=== PATIENT | female | born 1945 | race Caucasian/White ===

== ENCOUNTER 2022-07-09 14:00 | Outpatient (RCR) | payer MEDICARE, OTHER, SELFPAY | END 2022-10-15 09:03 | disposition home or self-care (01) | PROVIDERS: PCP Family Medicine; Visit Provider Family Medicine | DX: N81.89 Other female genital prolapse (principal); Z51.89 Encounter for other specified aftercare | CPT/HCPCS: 97110; 97140; 97162; 97535 ==

== ENCOUNTER 2022-11-05 13:45 | Outpatient (CLI) | payer MEDICARE, OTHER, SELFPAY | END 2022-11-05 13:46 | disposition home or self-care (01) | PROVIDERS: PCP Family Medicine; Visit Provider Obstetrics & Gynecology | DX: R68.89 Other general symptoms and signs (principal) | CPT/HCPCS: 87086 ==

== ENCOUNTER 2022-12-17 13:00 | Outpatient (CLI) | payer MEDICARE, OTHER, SELFPAY ==
--- NOTE | 2022-12-17 13:00 | CRLHL7_ITS ---
For Patients: As a result of the Century Cures Act, medical imaging exams and procedure reports are released immediately into your electronic medical record. You may view this report before your referring provider. If you have questions, please contact your health care provider. Indication: BLOATING AND PAIN, IBS Technique: Postcontrast CT abdomen and pelvis. 53 cc Isovue 370 intravenous contrast. Please note that all CT scans at this facility use dose modulation, iterative reconstruction, and/or weight-based dosing when appropriate to reduce radiation dose to as low as reasonably achievable. Comparison: None Findings: Mild atelectasis/scarring in both lung bases. There is no intrahepatic mass. No stigmata of cirrhosis. Atherosclerotic disease. Adrenal glands normal. Normal spleen. Nodular structure adjacent to the posterior liver measuring 1.1 cm. Right kidney is normal. Incidental extrarenal pelvis noted bilaterally. No hydronephrosis. Left kidney also normal. Normal pancreas. No hiatal hernia. Normal stomach. Duodenum and jejunum appear normal. Bladder unremarkable. No pelvic soft tissue mass. Postoperative changes of hysterectomy. Hyperdense material within the colon. No bowel obstruction, free air, free fluid or adenopathy. The appendix is absent. Degenerative spondylolisthesis of L3 on L4. No fracture. Impression: No bowel obstruction or inflammatory change. No evidence of colitis or enteritis. Atherosclerotic disease without aneurysm or dissection. No evidence of ischemic change. Incidental circumscribed nodular density posterior to liver. This is of doubtful significance and could be followed up at 1 year`[address] time with CT of the abdomen. Please note that all CT scans at this facility use dose modulation, iterative reconstruction, and/or weight-based dosing when appropriate to reduce radiation dose to as low as reasonably achievable. Dictated by Ferny Rosario MD @ 12/18/2022 4:59:05 PM (Electronically Signed)
[2022-12-17 13:58] LABS: Creatinine* 0.6 mg/dL (0.5-1.5); Estimated Glomerular Filt Rate 93 ml/min
== END 2022-12-17 13:01 | disposition home or self-care (01) ==
LOC: CT 13:01
PROVIDERS: PCP Family Medicine; Visit Provider Obstetrics & Gynecology
DX: R14.0 Abdominal distension (gaseous) (principal); K58.9 Irritable bowel syndrome, unspecified; I70.90 Unspecified atherosclerosis; K76.9 Liver disease, unspecified
CPT/HCPCS: 36415; 74177; 82565; Q9967

== ENCOUNTER 2023-05-11 06:01 | Day surgery (SDC) | payer MEDICARE, OTHER, SELFPAY ==
[2023-05-11] VITALS (20 sets, daily range): BP systolic 106–165; BP diastolic 64–99; PULSE 63–86; RESP 16–17; TEMP 36.2–36.8; O2SAT 92–99; BMI 21.8
[2023-05-11] MEDS: LACTATED RINGERS 1000 ML 1,000 ML 100 ML IV ×2 (07:00→12:53)
[2023-05-11] MEDS: SODIUM CHLORIDE 0.9 % (FLUSH) 10 ML SYRINGE IVF (07:00)
--- NOTE | 2023-05-11 07:16 | SUR.PREOP ---
TIME?OUT:?0716 PT/RN/MDA?VERIFICATION?OF?SURGICAL?SITE,?PROCEDURE,?AND?CONSENT OBTAINED?PRIOR?TO?INVASIVE?PROCEDURE.
[2023-05-11] MEDS: MIDAZOLAM HCL 1 MG/ML inj IVP (07:20)
[2023-05-11] MEDS: fentaNYL 100 MCG/2 ML inj IVP (07:20)
[2023-05-11] MEDS: EPINEPHrine 1 MG in SODIUM CHLORIDE IRRIG SOLUTION 3,000 ML 200 MG IRRIGATION (08:30)
[2023-05-11] MEDS: EPINEPHrine 1 MG in SODIUM CHLORIDE IRRIG SOLUTION 3,000 ML 9003 MG IRRIGATION ×4 (08:30)
--- NOTE | 2023-05-11 08:55 | W.PM.NB ---
Nerve Block Nerve Block Time Seen by Provider: 07:22 Date Seen: 05/11/23 Type of block requested by surgeon for post-operative analgesia: supraclavicular Side: left Time out performed: Yes Verification of patient name: Yes Verification of date of : Yes Site marking: site marked Name of person performing procedure: Devon Continuous monitoring Was continuous monitoring of O2 sat, B/P, monitor technician, recorded every 15 minutes?: Yes Procedure Checklist: sterile prep, needles and gloves Ultrasound guided. Images saved: Yes Medications given in 5ml increments after negative aspiration: Ropivicaine %: 0.5 mL: 20 Needle gauge: 22 Decadron (mg): 10 Precedex (mcg): 25 Patient tolerated procedure well: Yes Block Charges Block Charge (with Pro Fee): Brachial Plexus Use of Ultrasound Machine for Block: Yes- US Guidance/pain block
--- NOTE | 2023-05-11 08:55 | W.ANESCHARGE ---
Anesthesia Charges Start Date/Time Anesthesia Start Date: 05/11/23 Anesthesia Start Time: 07:30 Stop Date/Time Anesthesia Stop Date: 05/11/23 Anesthesia Stop Time: 09:28 Summary Extremes of Age - Over 70 or under 1: MDA
--- NOTE | 2023-05-11 09:06 | P.ORPRC_ITS ---
Procedure Note Date of procedure: 05/11/23 Procedure: PREOPERATIVE DIAGNOSES: 1. Left shoulder rotator cuff tear. 2. Left shoulder AC degenerative joint disease, primary, moderate-severe 3. Left shoulder subacromial impingement syndrome. POSTOPERATIVE DIAGNOSES: 1. Left shoulder rotator cuff tear. 2. Left shoulder AC degenerative joint disease, primary, moderate-severe 3. Left shoulder subacromial impingement syndrome. NAME OF OPERATION: 1. Left shoulder arthroscopic rotator cuff repair -upper border subscapularis and high-grade partial-thickness supraspinatus 2. Left shoulder arthroscopic distal clavicle excision 3. Left shoulder arthroscopic bursectomy, subacromial decompression/partial acromioplasty. SURGEON: Aristeo Fuentes MD OSTEOPATHIC NEUROLOGIST: Awais Rolon. Of note, a skilled dermatology physician assistant was critical for this case to aide in patient positioning, suture manipulation, arm positioning, instrument positioning, and closure. ANESTHESIA: General plus preoperative supraclavicular block. EBL: 25 mL IMPLANTS: Arthrex 4.75 mm BioComposite SwiveLock suture anchor (x1); 7.0 mm BioComposite SwiveLock suture anchor (x1) COMPLICATIONS: None evident INDICATIONS: The patient is a pleasant, 77-year-old female who has experienced left shoulder pain that has been increasing in recent time. Physical exam and imaging were consistent with a rotator cuff tear. Given their findings, as well as the weakness and pain, and inadequate response to nonoperative management, recommendation was made for surgery. FINDINGS: Exam under anesthesia revealed stable shoulder with excellent range of motion. The diagnostic arthroscopy revealed grade 2 chondromalacia humeral head and glenoid centrally. The Subscapularis tendon was torn from its upper border with mild retraction. The long head of the biceps tendon was intact overall without significant tearing or subluxation. The superior rotator cuff tendon was found to be torn and high-grade partial-thickness manner supraspinatus near its insertion. The labrum was minimally degeneratively frayed anteriorly. No loose bodies were identified within the pouch or subscapularis recess. PROCEDURE: Following a thorough discussion of risks, benefits, and alternatives, consent was obtained and the left shoulder was marked. The patient was brought to the operating room and placed supine on the operating table. Induction of anesthesia was completed after preoperative supraclavicular block was administered in preop holding. Appropriate time out was performed identifying proper patient, site, and procedure. 2 g IV Ancef was administered within 1 hour of incision preoperatively. The left upper extremity was prepped and draped in the appropriate sterile fashion using ChloraPrep prep. This was after the patient was positioned in the beach chair with their head in neutral alignment and all bony prominences well padded. The shoulder was insufflated with 20mL of normal saline via an 18g spinal needle from a posterior approach. An 11 blade skin incision allowed a blunt trochar to be inserted and diagnostic arthroscopy to be performed with the findings as noted above. An anterior portal was established with an outside in technique. This allowed the probe to be inserted and confirm the diagnostic arthroscopic findings. The shaver was then inserted and allowed debridement of rotator interval tissue. Following this, the upper border subscapularis was repaired after debriding the lesser tuberosity with the shaver and [place] cautery. Subscapularis was captured in horizontal mattress fashion with a fiber tape suture. The tails were brought to a single anchor in the lesser tuberosity with excellent reapproximation of the subscap tendon and good excursion/tension. Thereafter, the subacromial space was entered. Here, a complete bursectomy and partial acromioplasty/subacromial decompression was performed with a combination of radiofrequency ablator, the shaver, and a 5.5 mm bur. Additionally, distal clavicle excision was performed with the bur. 8 mm of distal clavicle was resected based on the width of our bur. Further inspection of the supraspinatus and infraspinatus rotator cuff was performed. This identified the tear as noted above. The margins of the tear were debrided, and the greater tuberosity was debrided with a combination of the [place] cautery, shaver, and bur on reverse setting. After gentle decortication, single FiberTape suture was passed in a horizontal mattress fashion with the scorpion needle. It was brought to a single anchor further laterally with excellent reapproximation and securing of the rotator cuff. The 1st 5.5 mm anchor that was tried pulled out due to poor bone quality. Thereafter, a 7 mm anchor was chosen and good security achieved. This was tested extensively to ensure it had good support and stability. Prior to anchor regional refrigerated cdl truck driver removal, the eyelet sutures were tugged on for each anchor and found that the anchor had excellent stability within the bone. The shoulder was placed through range of motion and found to be stable. The rotator cuff was re-probed and found to be stable. Instruments were removed. Excess fluid was drained, closure performed with 4-0 Monocryl and Steri-Strips. Dressings were applied. Sling was applied. The patient was awoken from anesthesia and transferred to the PACU in stable condition. A skilled dermatology physician assistant was critical for this case to aid in patient positioning, limb positioning, skill to manipulate arthroscopic instruments and camera, suture management, patient safety, and closure. PLAN: 1. Elbow, forearm, wrist and digit range of motion of operative extremity as tolerated. 2. Encouraged ice. 3. Tramadol for pain as needed. 4. Sling at all times except for ROM and showering. 5. Follow up with PA visit in 1-2 weeks for wound check. Initiate physical therapy following that visit for passive range of motion. Initiate active assisted range of motion at 4 weeks. May do pendulums now.
--- NOTE | 2023-05-11 09:30 | P.ANES_ITS ---
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
[2023-05-11] MEDS: ONDANSETRON 2 MG/ML inj 4 MG IVP (09:51)
--- NOTE | 2023-05-11 10:09 | SUR.PHASEI ---
patient met discharge criteria per anesthesia
[2023-05-11] MEDS: METOCLOPRAMIDE HCL 5 MG/ML INJ 10 MG IVP (11:32)
--- NOTE | 2023-05-11 12:53 | SUR.PHASEII ---
patient complains of consistent nausea, reglan given, essential oil patch given. no relief. anesthesia ordered another iv bolus of fluids to give.
--- NOTE | 2023-05-11 13:36 | SUR.PHASEII ---
PATIENT STATES SHE FEELS BETTER WITH IV FLUIDS GIVEN AND WANTS TO GO HOME TO REST.
== END 2023-05-11 13:35 | disposition home or self-care (01) ==
PROVIDERS: PCP Family Medicine; Visit Provider Orthopaedic Surgery Sports Medicine
PROC: (CPT 29805; principal; 2023-05-11 07:30)
DX: M75.102 Unspecified rotator cuff tear or rupture of left shoulder, not specified as traumatic (principal); M19.012 Primary osteoarthritis, left shoulder; M75.42 Impingement syndrome of left shoulder; G89.18 Other acute postprocedural pain
CPT/HCPCS: 29827; 29826; 29824; 01630; 64415; 76942; 99100; C1713; J0171; J0330; J1100; J2250; J2405; J2704; J2765; J2795; J3010; J7120; L3670; S0077

== ENCOUNTER 2023-11-20 08:10 | Outpatient (CLI) | payer MEDICARE, OTHER, SELFPAY ==
--- NOTE | 2023-11-20 09:38 | P.ANES_ITS ---
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
--- NOTE | 2023-11-20 09:58 | W.ANESCHARGE ---
Anesthesia Charges Start Date/Time Anesthesia Start Date: 11/20/23 Anesthesia Start Time: 09:23 Stop Date/Time Anesthesia Stop Date: 11/20/23 Anesthesia Stop Time: 09:39
--- NOTE | 2023-11-20 09:58 | W.ANESCHARGE ---
Anesthesia Charges Start Date/Time Anesthesia Start Date: 11/20/23 Anesthesia Start Time: 09:23 Stop Date/Time Anesthesia Stop Date: 11/20/23 Anesthesia Stop Time: 09:39 Summary Extremes of Age - Over 70 or under 1: MDA
== END 2023-11-20 08:11 | disposition home or self-care (01) ==
LOC: OP CLINIC 08:12
PROVIDERS: PCP Family Medicine; Visit Provider Internal Medicine
DX: K21.9 Gastro-esophageal reflux disease without esophagitis (principal); R10.13 Epigastric pain
CPT/HCPCS: 00731; 43239; 88305; 99100; J2405; J2704

== ENCOUNTER 2023-12-30 10:00 | Outpatient (RCR) | payer MEDICARE, OTHER, SELFPAY ==
--- NOTE | 2022-12-15 17:15 | PT.OPEX ---
PT [place] [facility] Eval PT [facility] Eval Start: 12/15/22 09:33 Freq: Status: Active Protocol: Document 12/15/22 09:49 FLAKITA (Rec: 12/15/22 09:52 FLAKITA [id number]) E-signed By Marta Bergman, PT Physical Therapy Outpatient Evaluation Insurance Information Recert Due Date 03/15/23 Insurance Name Medicare B,SPO [facility] Medical Diagnosis Pelvic pain pelvic and perineal pain Treating Diagnosis pain Referring MD Dr Pepito Judd presents to PT with diagnosis of pelvic and perineal pain. PFD symptoms have been present for > 1 year . Was treated in pelvic rehab last year to address her bladder symptoms, UI, which has continued to be better. Recently has been struggling with lower abdominal bloating and pain. The pain usually occurs prior to her defecating and is described as a burning pain just to the R of midline suprapubic region. Pain does cease after defecating. Rates pain as a 5-6/10. Also associated with her current symptoms is pain with intercourse, and mild UI if holding her urinate too long. 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 Goals for therapy are to reduce her abdominal pain and her pain with intercourse. 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 Her symptoms of PFD have been present for years. Was diagnosed and treated for Lichens Sclerosis which has been helpful. Her main c/o currently issue is lower abdominal bloating and pain. Pt does have history of IBS? and diverticuli ( confirmed with colonoscopy). Overall her diet is good/ balanced. She reports decreased appetite and decreased intake of food due to her current abdominal symptoms. Does have a CT scan scheduled in 2 days. Pt also has multiple other medical issues she is currently dealing with: L ankle surgery, lumbar dysfunction, B inguinal hernias and umbilical hernias (small hernias). Did not have time to complete assessment of pt PFM today due to her PMH and her current status and her upcoming CT scan. Will complete the assess of her PFM and pelvic region at her next session if appropriate. Plan is to continue with further skilled PT services including use of therapeutic exercise, therapeutic activities, neuromuscular re- ed, manual therapy, and self cares for symptom reduction. Plan of Care Rehabilitation Potential Good Physical Therapy Goals Short term goals to be achieved in 4 weeks. 1. Pt will report a reduction in the frequency of her lower abdominal pain by 50 % 2. Pelvic exam/treatment will result in at most 4/10 pain. 3. Pt will demonstrate normal resting tone of PFM at rest and following a PFM contraction, 3 out of 4 trials . [facility] goals to be achieved in 12 weeks. 1. Pt will be independent with home program for symptom reduction. 2. Pt able to report an 80 %, or greater, reduction in the occurrence of her lower abdominal pain prior to defecation. 3. Able to tolerate intercourse with pain no greater than 3/10 Coordination/Communication With Referral Source Treatment Plan/Direct Interventions Manual Therapy,Neuromuscular Re-ed,Self-Care/Home Management,Therapeutic Activities,Therapeutic Exercises Frequency/Duration 1 time a week for up to 12 visits Patient Will Be Discharged From Therapy Completion of LTG(s),Skills Plateau,Independent w/HEP, Independently Progressing Evaluation Billing Untimed Code Treatment Minutes 45 Complexity Moderate Certification Information Initial Certification Date 12/15/22 Ending Certification Date 03/15/23 Provider Signature Shows Agreement With POC & Medical Necessity Physician Signature & Date Requested Please Sign/Date Here Physician Comment/Change : Physician NPI Number #
--- NOTE | 2023-04-15 15:28 | PT.OPDNX ---
PT [place] Outpatient Daily Note PT [facility] Outpatient Daily Note Start: 12/15/22 09:33 Freq: Status: Active Protocol: Document 04/08/23 14:01 FLAKITA (Rec: 04/08/23 15:32 FLAKITA [id number]) E-signed By Marta Bergman, PT PT OP Daily Progress Note Visit Information Note Type Daily Note Visit Number [id number] Insurance Information Recert Due Date 07/07/23 Insurance Name Medicare B,[employer] [facility] Medical Diagnosis Pelvic pain pelvic and perineal pain Treating Diagnosis pain Referring MD Dr Beyer Subjective Subjective Pt had her follow up with Dr. Beyer. Biopsy was negative for CA. Will continue with Clobetasol 2 times a week. Has to be on Premarin halfway. Saw Dr. Fuentes. Is planning to have L shoulder surgery for RTC repair and frozen shoulder. Surgery is planned for May 11. Foot surgery will be post postponed until her shoulder improves. Has been doing her HEP as she can following her biopsy. Does feel like things are going OK .Still has some itching symptoms but better with the medication. Pain Comments 5-04/25 Precautions Treatment Precautions/Contraindications osteoporosis skin CA IBS HTN fibro Raynaud's Objective Patient Instructed in Risks/Benefits Yes Therapeutic Exercise Therapeutic Exercise Minutes (minutes) 30 Therapeutic Exercise: To Restore Did advance her HEP to work on Functional Status pelvic and lumbar stability and to improve function of her PFM -PT with use of Kegel into PT. Progressed from PT into unbanded hip ABD - B and unilateral with progression into B YTB. -Seated isometric hip ADD -Standing mini squats with gluteal contraction. Did need cueing on all exs for proper execution of her new exs. Self Care Management Training Self-Care Activity Minutes (minutes) 20 Self Care Management Training Did discuss pt's current status/situation. Suggested sleeping in recliner or hosp bed following her surgery. Discussed ways to modify her ADLs for ease and independence as much as possible. Also discussed pain following RTC repair and need to keep ahead of pain, ice, etc. Treatment Minutes Timed Code Treatment Minutes 50 Total Treatment Time 50 Billing Units Self-Care Activity Units 1 Therapeutic Exercise Units 2 Assessment/Impression Assessment/Impression Did not assess PFM today yet due to her biopsy approx 2 weeks ago. Only started her Premarin approx 5-7 days. Waited internal assessment to promote healing and improve tissue integrity with medications. Did work on advancing her HEP to work on more core strength prior to her upcoming surgery to help protect her PFM as well as improve her function/ independence. Will return next week and will assess PFM function at that time Plan of Care Physical Therapy Goals Short term goals to be achieved in 4 weeks. 1. Pt will report a reduction in the frequency of her lower abdominal pain by 50 %. IMPROVED/NEAR MET 2. Pelvic exam/treatment will result in at most 4/10 pain. IMPROVED 3. Pt will demonstrate normal resting tone of PFM at rest and following a PFM contraction, 3 out of 4 trials . IMPROVED/NEAR MET [facility] goals to be achieved in 12 weeks. 1. Pt will be independent with home program for symptom reduction. IMPROVED 2. Pt able to report an 80 %, or greater, reduction in the occurrence of her lower abdominal pain prior to defecation. IMPROVED 3. Able to tolerate intercourse with pain no greater than 3/10 NOT MET Daily Plan of Care Continue per POC,Change POC; See Comments Daily Plan of Care Comments Will reassess PFM status next week if able. Will continue to progress pt toward independent self management of her symptoms. Will work on continued downtraining, stretches/HEP and use of dilators if able for fully meet goals. Will see for approx 4-6 more session to work on transitioning to independence. Pt has her L shoulder surgery in approx 4 weeks. Will not be able to perform self treatment during her recovery from shoulder surgery. Recertification Information Initial Certification Date 12/15/22 Recertification Start Date 04/08/23 Recertification Due Date 07/07/23 Reasons to Continue Skilled Therapy Pt has had numerous set backs due to her health. Recently diagnosed with L RTC tear. Surgery will be in approx 1 month. Will try to improved independence prior to her surgery. During her recovery from surgery, will most like be unable to treat PFM. Will return again in June to reassess her status and progress as able. Rehabilitation Potential good Continued Plan of Care and Interventions Pt will continue with 4-6 more session over the past 12 weeks. Will use MT, ther exs, NMRE, and self care for symptom reduction and ability to self manage Provider Signature Shows Agreement With POC & Medical Necessity Physician Comment/Change Comment or Changes Physician NPI Number #
--- NOTE | 2023-07-03 15:27 | PT.OPDNX ---
PT [place] Outpatient Daily Note PT [facility] Outpatient Daily Note Start: 12/15/22 09:33 Freq: Status: Active Protocol: Document 07/03/23 13:06 FLAKITA (Rec: 07/03/23 15:01 FLAKITA [id number]) E-signed By Marta Bergman, PT PT OP Daily Progress Note Visit Information Note Type Daily Note Visit Number [id number] Insurance Information Recert Due Date 10/01/23 Insurance Name Medicare B,[employer] [facility] Medical Diagnosis Pelvic pain pelvic and perineal pain Treating Diagnosis pain Referring MD Dr Beyer Subjective Subjective Still has a rash - itchy at times but is better. Still has some itchiness along her vulvar area. No change in the itching with her use of medications. Has not yet tried the dilators due to recovering from her RCR. Pain Comments Precautions Treatment Precautions/Contraindications osteoporosis skin CA IBS HTN fibro Raynaud's Objective Patient Instructed in Risks/Benefits Yes Manual Therapy Techniques Manual Therapy Minutes (minutes) 45 Manual Therapy Techniques Observation of PF tissue - PFM tissue appears good. No redness despite pt reporting itching. MT was performed to all layers of PFM, externally along B bulbo, ischio and STP - TPR and lengthening/fascial work. Intravaginally MT use to reduce tone/spasms for symptom reduction. Emphasis of TPR was along Bulbo from 1-3, 3-6 and 11-12 o'clock. B [place] and PC lengthening/fascial work. Did review self TPR for pt to work tuyet along first layers due to high tone and reactivity. Educated with use of finger or dilator. Treatment Minutes Timed Code Treatment Minutes 45 Total Treatment Time 45 Billing Units Manual Therapy Units 3 Assessment/Impression Assessment/Impression Main c/o is still having symptoms of itching. Higher tone is present yet along B side of her PFM - especially along L 1st and 3rd layers. Pt is nervous about starting up on using dilators due to her recent shoulder surgery. Will try some TPR on her own to see if she can reduce some of the tone and her itching symptoms. Overall tissues is appearing better. No bleeding post session or sign of irritation. Pt will progress into some entle TPR or use of dilators as she can with her shoulder. Is making progress toward the goals. Plan of Care Physical Therapy Goals Short term goals to be achieved in 4 weeks. 1. Pt will report a reduction in the frequency of her lower abdominal pain by 50 %. MET 2. Pelvic exam/treatment will result in at most 4/10 pain. IMPROVED 3. Pt will demonstrate normal resting tone of PFM at rest and following a PFM contraction, 3 out of 4 trials . NEAR MET jail goals to be achieved in 12 weeks. 1. Pt will be independent with home program for symptom reduction. IMPROVED. HAS HAD A SET BACK DUE TO HER RECENT SURGERY 2. Pt able to report an 80 %, or greater, reduction in the occurrence of her lower abdominal pain prior to defecation. IMPROVED 3. Able to tolerate intercourse with pain no greater than 3/10 NOT MET- HAS NOT BEEN ABLE TO WORK ON HER HEP CONSISTENTLY SINCE HER SHOULDER SURGERY Daily Plan of Care Continue per POC,Change POC; See Comments Daily Plan of Care Comments Will continue with up to 6 more session to advance to self management. Recertification Information Initial Certification Date 12/15/22 Recertification Start Date 07/03/23 Recertification Due Date 10/01/23 Reasons to Continue Skilled Therapy see above Rehabilitation Potential GOOD Continued Plan of Care and Interventions up to 6 more session to advance her HEP into self management. Will use MT, ther exs, self cares, and NMRE for symptom reduction. Provider Signature Shows Agreement With POC & Medical Necessity Physician Comment/Change Comment or Changes Physician NPI Number #
--- NOTE | 2023-09-18 17:27 | PT.OPDNX ---
PT [place] [facility] Daily Note PT [facility] Daily Note Start: 12/15/22 09:33 Freq: Status: Active Protocol: Document 09/14/23 10:06 FLAKITA (Rec: 09/14/23 11:11 FLAKITA [id number]) E-signed By Marta Bergman, PT PT OP Daily Progress Note Visit Information Note Type Daily Note,Recert/Progress Note Visit Number 22 Running Total Visit Number 22 Insurance Information Recert Due Date 12/17/23 Insurance Name Medicare B,[facility] Medical Diagnosis Pelvic pain pelvic and perineal pain Treating Diagnosis pain Referring MD Dr Beyer Subjective Subjective Does have some pain in her back and L shoulder - had to lift suitcases last week due to spouses surgery. Still is sore. Did see Dr Beyer. Is to stay on her meds 2 times a week for 1 year., then will be reeval. Overall she is doing fair. Is making slow progress at home with her HEP and use of the dilators. Has gotten to the second to the largest dilator. Did have some soreness after using the dilator. Still is concerned with further progression but understands need to progress slowly. Precautions Treatment Precautions/Contraindications osteoporosis skin CA IBS HTN fibro Raynaud's Objective Patient Instructed in Risks/Benefits Yes Manual Therapy Techniques Manual Therapy Minutes (minutes) 45 Manual Therapy Techniques Good tissue color noted today - mild redness noted along L inf introuts. MT was performed to all layers of PFM, externally including: B bulbo, ischio and STP. Intravaginal TPR was performed along all layers of PFM with emphasis along B LA. Fascial release. lengthening techniques were used along B LA and at bulbo. Did review proper use of dilators and need to progress more slowly tuyet with the larger dilators. Educated on not inserting as far and reapplying lubricant often. Treatment Minutes Timed Code Treatment Minutes 45 Total Treatment Time 45 Billing Units Manual Therapy Units 3 Assessment/Impression Assessment/Impression Superficial layer of PFM tone was much improved today. Able to work on more direct techniques on PFM. Deeper layers of PFM tone was elevated today. Did work on more TPR along this layer and was able to work on some lengthening but used mild pressure. Still unable to advance HEP much due to her recent shoulder surgery and pain in her feet. Pt will continue with the stretches as she is able She overall is progressing nicely. Did caution her about being more patient with her progression with the dilators. Pt will return to be reassessed in approx 3 weeks. Will make modification as needed and will transition her to independent self management if she is doing well. Plan of Care Physical Therapy Goals Short term goals to be achieved in 4 weeks. 1. Pt will report a reduction in the frequency of her lower abdominal pain by 50 %. MET 2. Pelvic exam/treatment will result in at most 4/10 pain. NEAR MET/IMPROVED 3. Pt will demonstrate normal resting tone of PFM at rest and following a PFM contraction, 3 out of 4 trials . NEAR MET longterm goals to be achieved in 12 weeks. 1. Pt will be independent with home program for symptom reduction. IMPROVED. HAS HAD A SET BACK DUE TO HER RECENT SURGERY 2. Pt able to report an 80 %, or greater, reduction in the occurrence of her lower abdominal pain prior to defecation. IMPROVED/NEAR MET 3. Able to tolerate intercourse with pain no greater than 3/10 UNKNOWN - PT HAS NOT YET ATTEMPTED TO TRY INTERCOURSE/KEG INSPECTOR AT THIS TIME DUE TO MULTIPLE REASONS. Daily Plan of Care Continue per POC,Change POC; See Comments Daily Plan of Care Comments 1-3 more session. Plan is to transition to independent self management with home program Recertification Information Initial Certification Date 12/15/22 Recertification Start Date 09/18/23 Recertification Due Date 12/17/23 Reasons to Continue Skilled Therapy see above Rehabilitation Potential GOOD Continued Plan of Care and Interventions up to 1-3 more session to modify/advance her HEP and transition into self management. Will use MT, ther exs, self cares, and NMRE for further symptom reduction and for education on self management. Provider Signature Shows Agreement With POC & Medical Necessity Physician Comment/Change Comment or Changes Physician NPI Number #
== END 2024-04-28 23:59 | disposition home or self-care (01) ==
PROVIDERS: PCP Family Medicine; Visit Provider Obstetrics & Gynecology
DX: R10.2 Pelvic and perineal pain (principal); Z51.89 Encounter for other specified aftercare
CPT/HCPCS: 97110; 97140; 97162; 97535

== ENCOUNTER 2024-01-06 14:01 | Outpatient (CLI) | payer MEDICARE, OTHER, SELFPAY ==
--- NOTE | 2024-01-06 15:00 | US_ITS ---
Patient: NENO DIAMOND Facility:?[facility] Patient ID:?[id number] Site Patient ID:?[id number]. Site :?1945 Study:?US-Abdomen RUQ-01/06/2024 2:50:56 PM Ordering Physician:DIONNA Final Report: INDICATION: Right upper quadrant pain COMPARISON: CT 12/17/2022 TECHNIQUE: Real time melendez scale imaging and color Doppler analysis was performed of the right upper quadrant. FINDINGS: The patient`s liver is of normal size and has uniform echogenicity. There is a normal appearance of the hepatic IVC and proximal abdominal aorta. There is no evidence of ascites. The gallbladder is of normal size and there is no evidence of intraluminal stones or sludge. The gallbladder wall measures 1.3 mm in thickness. The common bile duct is of normal size and measures 2.2 mm in diameter at the level of the kya hepatis. The pancreas appears normal. There is no evidence of a stone or hydronephrosis within the right kidney. The right kidney measures 8.8 cm in length. IMPRESSION: Normal right upper quadrant ultrasound. Dictated by Ferny Rosario MD @ 01/07/2024 11:01:07 AM Signed by:?Ferny Rosario MD @01/07/2024 11:01:07 AM (Electronic Signature)
== END 2024-01-06 14:02 | disposition home or self-care (01) ==
LOC: US 14:02
PROVIDERS: PCP Family Medicine; Visit Provider Internal Medicine
DX: R10.11 Right upper quadrant pain (principal)
CPT/HCPCS: 76705

== ENCOUNTER 2024-02-05 12:47 | Outpatient (CLI) | payer MEDICARE, OTHER, SELFPAY ==
--- NOTE | 2024-02-05 13:00 | MR_ITS ---
[address] [address] Phone:?[phone] Fax:?[phone] Referring Physician Information: Aristeo Fuentes M.D. [id number] [facility] [address] Phone:?[phone] Fax:?[phone] Patient:Addie Rodriguez D.O.B:?1945 Sex:?Female Phone:?[phone] [facility] MRN:?[id number] Exam Date:?02/05/2024 EXAM: MRI of the LEFT SHOULDER, without contrast CLINICAL HISTORY: Ongoing left shoulder pain. History of previous left shoulder surgery. COMPARISONS: MRI 03/28/2023. Plain radiographs 01/19/2023. TECHNICAL: MRI sequences of the left shoulder: Axials: PD, T2 Coronals: PD, STIR, T2 Sagittals: PD, T2 SEDATION: None CONTRAST: None FINDINGS: Bones: No fracture or suspicious bone marrow signal abnormality. Coracoacromial arch: Acromion: No os acromiale. Surgical changes status post acromioplasty. Acromiohumeral space: The bony distance is unremarkable. Acromioclavicular joint: Surgical changes status post distal clavicular resection. Coracoclavicular ligament: The coracoclavicular ligament is intact. Rotator cuff muscles/tendons: Supraspinatus: Surgical changes status post rotator cuff tendon repair. The supraspinatus tendon is within normal postoperative limits. No muscular atrophy. Infraspinatus: The infraspinatus tendon and muscle are intact. Teres minor: The teres minor tendon and muscle are intact. Subscapularis: Surgical changes status post rotator cuff tendon repair. The subscapularis tendon is within normal postoperative limits. No muscular atrophy. Labrum and glenohumeral joint: No evidence of labral tear although evaluation is suboptimal because of nonarthrogram technique and motion artifact. Physiologic amount of joint fluid. The cartilage is not well evaluated because of nonarthrogram technique and motion artifact. No convincing evidence of capsular edema or thickening although evaluation is suboptimal because of lack of joint distention. Proximal biceps tendon, long head and short heads: There is no evidence of acute injury of the long head of the biceps tendon although it must be noted that evaluation is compromised by the presence of postoperative changes and motion artifact. The short head is intact. Bursae: Subacromial/subdeltoid: No convincing subacromial bursal thickening/bursitis. Subcoracoid: No convincing subcoracoid bursal thickening/bursitis. There is no evidence of left pectoralis major or minor tendon injury. IMPRESSION: 1. Surgical changes status post rotator cuff repair of the supraspinatus and subscapularis tendons, acromioplasty, and distal clavicular resection; correlate with surgical history. The supraspinatus and subscapularis tendons are within normal postoperative limits. No rotator cuff muscular atrophy. 2. No evidence of acute injury of the long head of the biceps tendon although it must be noted that evaluation is compromised by the presence of postoperative changes and motion artifact; correlate with surgical history. 3. No evidence of left pectoralis major or minor tendon injury. RCB Electronically signed on 02/08/2024 7:57:00 AM by Desmond Hernandez M.D.
== END 2024-02-05 12:48 | disposition home or self-care (01) ==
LOC: MRI 12:48
PROVIDERS: PCP Family Medicine; Visit Provider Orthopaedic Surgery Sports Medicine
DX: M25.512 Pain in left shoulder (principal); M75.102 Unspecified rotator cuff tear or rupture of left shoulder, not specified as traumatic; Z98.890 Other specified postprocedural states
CPT/HCPCS: 73221

== ENCOUNTER 2024-06-01 10:23 | Outpatient (CLI) | payer MEDICARE, OTHER, SELFPAY ==
--- NOTE | 2024-06-01 10:45 | CRLHL7_ITS ---
For Patients: As a result of the Cures Act, medical imaging exams and procedure reports are released immediately into your electronic medical record. You may view this report before your referring provider. If you have questions, please contact your health care provider. DIGITAL DIAGNOSTIC BILATERAL MAMMOGRAM USING TOMOSYNTHESIS AND COMPUTER-AIDED DETECTION LEFT BREAST ULTRASOUND CLINICAL HISTORY: LEFT breast pain. COMPARISON: 11/26/2022, 11/14/2021, 11/13/2020. TECHNIQUE: Digital bilateral mammogram in four projections with computer-aided detection. Tomosynthesis was used in this interpretation. Real-time ultrasound imaging of LEFT breast with imaging documentation. BREAST COMPOSITION: Almost entirely fat. FINDINGS: 3D CC/MLO bilateral mammogram images submitted. No suspicious mass or architectural distortion. No adenopathy or suspicious calcifications. Targeted LEFT breast ultrasound performed at 3 o`clock 9 cm from the nipple. Normal breast tissue is present. No fibrocystic change or mass. IMPRESSION: Normal breast tissue. No evidence of malignancy. RECOMMENDATIONS: Annual bilateral screening mammography. Results and recommendations discussed with the patient. BI-RADS Category 2: Benign A lay language report of this examination will be provided to the patient. Dictated by Ferny Rosario MD @ 06/01/2024 12:14:49 PM kiya/Dictated by: Ferny Rosario MD @ 06/01/2024 12:14:00 PM (Electronically Signed)
--- NOTE | 2024-06-01 11:15 | CRLHL7_ITS ---
For Patients: As a result of the Cures Act, medical imaging exams and procedure reports are released immediately into your electronic medical record. You may view this report before your referring provider. If you have questions, please contact your health care provider. PLEASE SEE DIGITAL DIAGNOSTIC BILATERAL MAMMOGRAM PERFORMED SAME DAY CRL:kiya huertas/Dictated by: Ferny Rosario MD @ 06/01/2024 12:14:00 PM (Electronically Signed)
== END 2024-06-01 10:24 | disposition home or self-care (01) ==
LOC: MAMMO 10:23
PROVIDERS: PCP Family Medicine; Visit Provider Obstetrics & Gynecology
DX: N64.4 Mastodynia (principal)
CPT/HCPCS: 76642; 77066; G0279

== ENCOUNTER 2024-09-28 15:16 | Outpatient (CLI) | payer MEDICARE, OTHER, SELFPAY | END 2024-09-28 15:17 | disposition home or self-care (01) | LOC: NFLDREF 09-29 14:30 | PROVIDERS: PCP Family Medicine; Referring Provider Family Medicine; Visit Provider Obstetrics & Gynecology | DX: R30.0 Dysuria (principal); N95.2 Postmenopausal atrophic vaginitis | CPT/HCPCS: 87086 ==

== ENCOUNTER 2025-08-11 08:33 | Outpatient (CLI) | payer MEDICARE, SELFPAY ==
--- NOTE | 2025-08-11 09:32 | P.ANES_ITS ---
Anesthesia Charges Start Date/Time Anesthesia Start Date: 08/11/25 Anesthesia Start Time: 09:30 Stop Date/Time Anesthesia Stop Date: 08/11/25 Anesthesia Stop Time: 09:50 Coding CPT Codes CPT Codes: ANES UPR GI NDSC PX NOS - 90546 ([id number]) QK - WEB APPLICATION DEVELOPER 2-4 CNCRNT ANES PROC, QX - DRAINAGE INSPECTOR SVC W/ MD MED DIRECTION, P2 - PATIENT W/MILD SYST DISEASE
--- NOTE | 2025-08-11 09:32 | W.ANESCHARGE ---
Anesthesia Charges Start Date/Time Anesthesia Start Date: 08/11/25 Anesthesia Start Time: 09:30 Stop Date/Time Anesthesia Stop Date: 08/11/25 Anesthesia Stop Time: 09:50 Coding CPT Codes CPT Codes: ANES UPR GI NDSC PX NOS - 61454 ([id number]) QK - SALES LEDGER ADMINISTRATOR 2-4 CNCRNT ANES PROC, QX - KNOCKUP WORKER SVC W/ MD MED DIRECTION, P2 - PATIENT W/MILD SYST DISEASE
--- NOTE | 2025-08-11 10:05 | P.ANES_ITS ---
Anesthesia Charges Start Date/Time Anesthesia Start Date: 08/11/25 Anesthesia Start Time: 09:30 Stop Date/Time Anesthesia Stop Date: 08/11/25 Anesthesia Stop Time: 09:50 Coding CPT Codes CPT Codes: ANES UPR GI NDSC PX NOS - 82433 ([id number]) P2 - PATIENT W/MILD SYST DISEASE, QK - COFFEE SOMMELIER 2-4 CNCRNT ANES PROC, QX - SUPERVISOR MODEL MAKING SVC W/ MD MED DIRECTION
--- NOTE | 2025-08-11 10:05 | W.ANESCHARGE ---
Anesthesia Charges Start Date/Time Anesthesia Start Date: 08/11/25 Anesthesia Start Time: 09:30 Stop Date/Time Anesthesia Stop Date: 08/11/25 Anesthesia Stop Time: 09:50 Coding CPT Codes CPT Codes: ANES UPR GI NDSC PX NOS - 64557 ([id number]) P2 - PATIENT W/MILD SYST DISEASE, QK - ON AWAKE COUNSELOR 2-4 CNCRNT ANES PROC, QX - CULLET TRUCKER SVC W/ MD MED DIRECTION
== END 2025-08-11 08:34 | disposition home or self-care (01) ==
LOC: OP CLINIC 08:34
PROVIDERS: PCP Family Medicine; Visit Provider Internal Medicine Gastroenterology
DX: R10.13 Epigastric pain (principal); K21.9 Gastro-esophageal reflux disease without esophagitis; K44.9 Diaphragmatic hernia without obstruction or gangrene; R93.3 Abnormal findings on diagnostic imaging of other parts of digestive tract
CPT/HCPCS: 00731; 43239; 88305; J2405; J2704; J3490

== ENCOUNTER 2025-09-26 14:01 | Outpatient (CLI) | payer MEDICARE, OTHER, SELFPAY | END 2025-09-26 14:02 | disposition home or self-care (01) | LOC: NFLDREF 14:02 | PROVIDERS: PCP Family Medicine; Visit Provider Obstetrics & Gynecology | DX: R30.0 Dysuria (principal) | CPT/HCPCS: 87086 ==